=== PATIENT | male | born 1935 | race Caucasian/White ===

== ENCOUNTER 2024-10-14 18:48 | Emergency (ER) | payer OTHER, SELFPAY ==
[2024-10-14] VITALS (10 sets, daily range): BP systolic 135–178; BP diastolic 65–87; PULSE 68–89; RESP 11–24; TEMP 37; O2SAT 95–99
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
--- NOTE | 2024-10-14 18:48 | EKG_ITS ---
[place] [id number] [place] [id number] Test Date: 2024-10-14 Pat Name: Fahad Conroy Department: [facility] Room: Gender: Male Transport Nurse: AARON : 1935 Requested By: Order Number: [id number] Reading MD: Juancarlos Palafox MD Measurements Intervals [place] Rate: 69 P: 53 DC: 250 QRS: -25 QRSD: 102 T: 65 QT: 400 QTc: 428 Interpretive Statements Sinus rhythm with 1st degree AV block Septal infarct , age undetermined Electronically Signed On 10-16-2024 8:24:14 PDT by Juancarlos Palafox MD
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
[2024-10-14 18:57] LABS: Add Manual Diff / Slide Review NO; Basophils Absolute Auto 0 /uL (0-100); Eosinophils Absolute Auto 100 /uL (0-450); Eosinophils Percent Auto 1.2 % (2-4); Hematocrit 43.1 % (41-53); Hemoglobin 14.3 g/dL (13.5-17.5); Lymphocytes Absolute Auto 1500 /uL (1100-4500); Lymphocytes Percent Auto 35.9 % (25-40); Mean Corpuscular HGB Conc 33.2 % (30-36); Mean Corpuscular Hemoglobin 28.3 PG (26-34); Mean Corpuscular Volume 85.1 fL (80-100); Monocytes Absolute Auto 400 /uL (0-900); Monocytes Percent Auto 8.3 % (3-14); Neutrophils Absolute Auto 2300 /uL (1500-7000); Neutrophils Percent Auto 53.6 % (50-75); Platelet Count 198 X10^3/uL (150-400); Red Blood Cell Count 5.07 X10^6/uL (4.5-5.9); Red Cell Distribution Width 15.7 % (11.6-14.8); White Blood Cell Count 4.3 X10^3/uL (4.5-11.0)
--- NOTE | 2024-10-14 19:08 | PC.NURSE ---
Pt sitting up in gurney. Appears in NAD. Has golf ball sized hematoma on left side of forehead. Pt is A/O X4.
[2024-10-14 19:09] LABS: Alanine Aminotransferase 26 IU/L (<50); Albumin 4.6 g/dL (3.5-5.0); Albumin Globulin Ratio 1.6 (1.0-2.8); Alkaline Phosphatase 72 U/L (38-126); Aspartate Aminotransferase 40 IU/L (17-59); BUN Creatinine Ratio 27.5 (6-22); Bilirubin Total 0.8 mg/dL (0.2-1.3); Blood Urea Nitrogen 36 mg/dL (9-20); Calcium 9.3 mg/dL (8.4-10.2); Carbon Dioxide 27 mmol/L (22-32); Chloride 104 mmol/L (98-107); Estimated Glomerular Filt Rate 53 mL/min (>60); Globulin 2.9 g/dL (1.7-4.1); Glucose 145 mg/dL (80-110); HEMOLYSIS 23 (0-50); Potassium 3.8 mmol/L (3.4-5.1); Sodium 141 mmol/L (137-145); Total Protein 7.5 g/dL (6.3-8.2)
[2024-10-14 19:21] LABS: Troponin I < 0.012 ng/mL (0.01-0.034)
--- NOTE | 2024-10-14 19:53 | PC.NURSE ---
ok for C collar to come off. C collar removed from pt.
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
[2024-10-14] MEDS: AMLODIPINE 5 MG TABLET PO (21:29)
== END 2024-10-14 21:40 | disposition home or self-care (01) ==
PROVIDERS: Emergency Provider Emergency Medicine
DX: S00.83XA Contusion of other part of head, initial encounter (principal); I10 Essential (primary) hypertension; I25.10 Atherosclerotic heart disease of native coronary artery without angina pectoris; V43.52XA Car driver injured in collision with other type car in traffic accident, initial encounter; Y92.410 Unspecified street and highway as the place of occurrence of the external cause; Z79.02 Long term (current) use of antithrombotics/antiplatelets; Z95.1 Presence of aortocoronary bypass graft
CPT/HCPCS: 36415; 70450; 71045; 72125; 80053; 84484; 85025; 93005; 93010; 99284